=== PATIENT | female | born 1950 | race Caucasian/White ===

== ENCOUNTER 2021-02-09 06:26 | Day surgery (SDC) | payer MEDICARE, BC ==
[2021-02-08 11:45] VITALS: BMI 34.1
[2021-02-09] MEDS ORDERED: Cyclopentolate 1% Opth Drop 2 ML BOT ONE (06:32)
[2021-02-09] MEDS ORDERED: Phenylephrine 2.5% Ophth Soln 5 ML BOT ONE (06:32)
[2021-02-09] MEDS ORDERED: Fentanyl 100 MCG/2 ML VIAL ONE (06:40)
[2021-02-09] MEDS ORDERED: Midazolam HCl 2 mg/2 ml Vial ONE (06:40)
[2021-02-09] MEDS ORDERED: EPINEPHrine 0.3 MG in Ophthalmic Irrigation Solution 500 ML IRR SCH (06:45)
[2021-02-09] MEDS ORDERED: Lidocaine 1% PF 5 ML VIAL ONE (07:06)
[2021-02-09] MEDS ORDERED: Triamcinolone 40 MG/ML VIAL ONE (07:06)
[2021-02-09] MEDS ORDERED: PROPOFOL 200 MG/20 ML VIAL ONE (07:06)
[2021-02-09] MEDS ORDERED: Bupivacaine PF 0.75% SDV 10 ML ONE (07:06)
[2021-02-09] MEDS ORDERED: Maxitrol 0.1% Opth Oint 3.5 GM TUBE ONE (07:06)
[2021-02-09] MEDS ORDERED: CEFAZOLIN 1 GM VIAL ONE (07:06)
[2021-02-09] MEDS ORDERED: Lidocaine 4% PF 5 ML AMP ONE (07:06)
== END 2021-02-09 08:22 | disposition home or self-care (01) ==
LOC: SDC 06:26
PROVIDERS: ATTEND Ophthalmology Retina Specialist
PROC: 08T53ZZ Resection of Left Vitreous, Percutaneous Approach (ICD-10-PCS; principal; 2021-02-09)
PROC: 08QF3ZZ Repair Left Retina, Percutaneous Approach (ICD-10-PCS; 2021-02-09)
DX: H33.312 Horseshoe tear of retina without detachment, left eye (principal); H43.392 Other vitreous opacities, left eye; I10 Essential (primary) hypertension; E78.5 Hyperlipidemia, unspecified; E03.9 Hypothyroidism, unspecified; E11.9 Type 2 diabetes mellitus without complications; E66.9 Obesity, unspecified; Z68.34 Body mass index [BMI] 34.0-34.9, adult; Z79.82 Long term (current) use of aspirin; Z79.84 Long term (current) use of oral hypoglycemic drugs; Z79.899 Other long term (current) drug therapy; Z91.041 Radiographic dye allergy status; Z98.84 Bariatric surgery status
CPT/HCPCS: J0171; J0690; J2250; J2704; J3010; J3301; J3490

== ENCOUNTER 2021-06-04 17:15 | Outpatient (CLI) | payer MEDICARE, BC ==
[2021-06-05 00:52] LABS: SARS-CoV-2 PCR by NAA Not Detected (NotDetected)
== END 2021-06-04 17:16 | disposition home or self-care (01) ==
LOC: LABBT 17:15
PROVIDERS: ATTEND Surgery
DX: Z01.812 Encounter for preprocedural laboratory examination (principal); H43.391 Other vitreous opacities, right eye; Z20.822 Contact with and (suspected) exposure to COVID-19
CPT/HCPCS: U0003; U0005

== ENCOUNTER 2021-06-08 06:30 | Day surgery (SDC) | payer MEDICARE, BC ==
[2021-06-04 12:00] VITALS: BMI 34.1
[2021-06-08] MEDS ORDERED: Phenylephrine 2.5% Ophth Soln 5 ML BOT ONE (06:42)
[2021-06-08] MEDS ORDERED: Cyclopentolate 1% Opth Drop 2 ML BOT ONE (06:43)
[2021-06-08] MEDS ORDERED: Midazolam HCl 2 mg/2 ml Vial ONE (06:44)
[2021-06-08] MEDS ORDERED: PROPOFOL 20 ML ONE (06:44)
[2021-06-08] MEDS ORDERED: Fentanyl 250 MCG/5 ML VIAL ONE (06:44)
[2021-06-08] MEDS ORDERED: EPINEPHrine 0.3 MG in Ophthalmic Irrigation Solution 500 ML IRR SCH (06:45)
[2021-06-08] MEDS ORDERED: Lidocaine 1% PF 5 ML VIAL ONE (07:57)
[2021-06-08] MEDS ORDERED: Maxitrol 0.1% Opth Oint 3.5 GM TUBE ONE (07:57)
[2021-06-08] MEDS ORDERED: Bupivacaine PF 0.75% SDV 10 ML ONE (07:57)
[2021-06-08] MEDS ORDERED: Triamcinolone 40 MG/ML VIAL ONE (07:57)
[2021-06-08] MEDS ORDERED: Lidocaine 4% PF 5 ML AMP ONE (07:57)
[2021-06-08] MEDS ORDERED: CEFAZOLIN 1 GM VIAL ONE (07:57)
== END 2021-06-08 08:50 | disposition home or self-care (01) ==
LOC: SDC 06:30
PROVIDERS: ATTEND Ophthalmology Retina Specialist
PROC: 08T43ZZ Resection of Right Vitreous, Percutaneous Approach (ICD-10-PCS; principal; 2021-06-08)
PROC: 08QE3ZZ Repair Right Retina, Percutaneous Approach (ICD-10-PCS; 2021-06-08)
DX: H33.321 Round hole, right eye (principal); H43.391 Other vitreous opacities, right eye; Z79.82 Long term (current) use of aspirin; Z79.84 Long term (current) use of oral hypoglycemic drugs; Z79.899 Other long term (current) drug therapy; Z91.041 Radiographic dye allergy status; Z98.84 Bariatric surgery status
CPT/HCPCS: J0171; J0690; J2250; J2704; J3010; J3301; J3490